=== PATIENT | female | born 1980 | race Caucasian/White ===

== ENCOUNTER → 2017-07-10 | Outpatient (CLI) | payer OTHER ==
--- NOTE | 2017-07-10 08:37 | DIAGNOSTIC IMAGING REPORT ---
R WRIST MIN 3 VIEWS ROUTINE CLINICAL HISTORY: Right wrist pain status post trauma COMPARISON: None. DISCUSSION: No fractures or dislocations are visualized. IMPRESSION: No fractures or dislocations identified. Electronically signed by: Zafar Maloney M.D. 07/10/2017 8:35 AM Dictated Date/Time: 07/10/2017 8:35 AM
--- NOTE | 2017-07-10 08:40 | DIAGNOSTIC IMAGING REPORT ---
R SHOULDER MIN 2 VIEWS ROUTINE CLINICAL HISTORY: PAIN ELBOW, WRIST AND SHOULDER S/P TRAMA pain. Trauma. COMPARISON: None. DISCUSSION: The bones and joint spaces appear intact. There is no evidence of fracture, dislocation or bony disease. There is no evidence for soft tissue swelling. IMPRESSION: Negative study. The above report was generated using voice recognition software. It may contain grammatical, syntax or spelling errors. Electronically signed by: Philippe Walker M.D. 07/10/2017 8:39 AM Dictated Date/Time: 07/10/2017 8:38 AM
--- NOTE | 2017-07-10 08:41 | DIAGNOSTIC IMAGING REPORT ---
R ELBOW MIN 3 VIEWS ROUTINE CLINICAL HISTORY: PAIN ELBOW, WRIST AND SHOULDER S/P TRAMA COMPARISON: None FINDINGS: Alignment of the right elbow is anatomic. No joint effusion or fracture is identified. Joint spaces are preserved. IMPRESSION: No fracture or joint effusion of the right elbow. Electronically signed by: Krzysztof Fried M.D. 07/10/2017 8:39 AM Dictated Date/Time: 07/10/2017 8:39 AM
== END | disposition home or self-care (01) ==
LOC: C.RAD 08:00
PROVIDERS: ATTEND Nurse Practitioner Family
DX: M25.521 Pain in right elbow (principal); M25.511 Pain in right shoulder; M25.531 Pain in right wrist

== ENCOUNTER → 2017-07-19 | Outpatient (CLI) | payer OTHER ==
--- NOTE | 2017-07-19 17:40 | DIAGNOSTIC IMAGING REPORT ---
R UPPER EXT JOINT WITHOUT CLINICAL HISTORY: 36 years-old Female presenting with RIGHT ELBOW PAIN. TECHNIQUE: Multisequence, multiplanar MR imaging of the right elbow was performed without the use of intravenous contrast. IV contrast: None. COMPARISON: Plain radiographs from 07/10/2017. FINDINGS: No bony edema. Normal bone marrow signal intensity. Radial collateral ligament intact. Lateral ulnar collateral ligament intact. Annular ligament intact. Minimal edema superficial to the radiocapitellar articulation. Common extensor tendon intact. Ulnar collateral ligament intact. Minimal edema noted superficial to the radiocapitellar articulation. Common flexor tendon intact. Radial, ulnar, and median nerves normal in appearance. No elbow joint effusion. Triceps tendon intact. Biceps tendon intact. Brachialis tendon intact. IMPRESSION: 1. Minimal edema superficial to the radiocapitellar articulation, possibly bursitis. No convincing evidence of epicondylitis. No other abnormality. Electronically signed by: Edi Olson M.D. 07/19/2017 5:39 PM Dictated Date/Time: 07/19/2017 5:30 PM
== END | disposition home or self-care (01) ==
LOC: C.MRI 16:37
PROVIDERS: ATTEND Nurse Practitioner Family
DX: M25.521 Pain in right elbow (principal)